=== PATIENT | male | born 1995 | race Caucasian/White ===

== ENCOUNTER 2018-09-21 09:28 | Outpatient (CLI) | payer OTHER ==
[2018-09-21] MEDS: BUFFERED LIDOCAINE 10 ML SYRINGE IU ONE (11:55)
--- NOTE | 2018-09-21 16:25 | Ultrasound Report ---
Reason: NEOPLASM, UNCERTAIN, THYROID, NECK MASS/LUMP Procedure Date: 09/21/2018 Accession Number: [id number] / [id number] Procedure: US - Fine Needle Aspiration CPT Code: FULL RESULT: PROCEDURE: ULTRASOUND GUIDED FINE NEEDLE ASPIRATION BIOPSY PREOPERATIVE DIAGNOSIS: Mass in right thyroid lobe and adjacent lymph nodes, possibly malignant. POSTOPERATIVE DIAGNOSIS: Same TECHNIQUE: Following written and oral informed consent including procedure risks and alternatives, the patient was brought to the ultrasound suite and positioned. Using local anesthesia, sterile technique, and direct ultrasound control, a 22-gauge needles were advanced to the mass and aspiration technique was performed. A total of 4 samples were obtained from the most dominant nearby lymph node as well as 4 aspiration samples from the exophytic right thyroid lobe mass. [employer] LAB[employer]ER: Dr. Vega ESTIMATED BLOOD LOSS: Minimal FLUOROSCOPY TIME: None. COMPLICATIONS: None. CONDITION: Good. SPECIMEN: 22-gauge FNA needles. IMPLANTS: None. FINDINGS: Real-time ultrasound performed with static images saved to the PACS demonstrating the needle directed into the mass. IMPRESSION: Uncomplicated ultrasound guided biopsy as described. Pathology results will be reported separately. [facility]
== END 2018-09-21 09:29 | disposition home or self-care (01) ==
LOC: DI 09:28
PROVIDERS: ATTEND Otolaryngology
DX: C73 Malignant neoplasm of thyroid gland (principal)
CPT/HCPCS: 10022